=== PATIENT | male | born 1940 | race Caucasian/White ===

== ENCOUNTER 2019-06-16 09:15 | Inpatient (IN) ==
--- NOTE | 2019-06-04 10:53 | ANES ---
Anesthesia Pre Procedure Eval HOME MEDICATIONS Aspirin 325 mg PO DAILY 11/09/14 [Last Taken 11/09/14] latanoprost 0.005 % eye drops 1 drp OP QPM 01/09/18 [Last Taken Unknown] atorvastatin 20 mg tablet 20 mg PO DAILY #90 tab 11/21/18 [Last Taken Unknown] benazepril 20 mg-hydrochlorothiazide 25 mg tablet 1 tab PO DAILY #90 tab 12/19/18 [Last Taken Unknown] glimepiride 2 mg tablet 4 mg PO DAILY #60 tab 01/28/19 [Last Taken Unknown] blood sugar diagnostic See Rx Instructions .ROUTE .COMPLEX #100 each 03/07/19 [Last Taken Unknown] metFORMIN HCL [Metformin HCl] 1,000 mg PO BID 06/04/19 [Last Taken Unknown] metFORMIN HCL [Metformin HCl] 250 mg PO BID 06/04/19 [Last Taken Unknown] Allergies/Adverse Reactions: Allergies Allergy/AdvReac Type Severity Reaction Status Date / Time No Known Allergies Allergy Verified 06/04/19 09:30 - Planned Procedure Planned Procedure: RTKA, LTKA Medication List Reviewed:: Yes Allergies Verified: Yes Medical History (Last Reviewed 06/04/19 @ 10:51 by Fredo Simpson CRNA) Sleep apnea with use of continuous positive airway pressure (CPAP) Type II diabetes mellitus Amputation finger Onset Date: 11/16/99 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 Hyperlipidemia Onset Date: Unknown Hypertension Onset Date: Unknown Skin cancer Onset Date: 01/27/00 Surgical History (Last Reviewed 06/04/19 @ 10:51 by rFedo Simpson CRNA) H/O colonoscopy Onset Date: 01/25/07 Hx of eye surgery Onset Date: 1942 1 yrs of age Family History (Last Reviewed 06/04/19 @ 10:51 by Fredo Simpson CRNA) Brother Alzheimers disease Father Heart disease Sister Diabetes Obesity - Family Anesthesia History Family History:: no untoward family reactions to anesthesia, no familial bleeding tendencies, no family history of clotting disorders, no family history of premature - Airway/Neck/Teeth Within Normal Limits:: Yes Teeth Condition: intact Denture Type: Perm crown/bridge Mallampatti Score: 3 Thyromental (T-M) distance: > 6 cm Mandibulo Hyoid distance: > 3 cm - Respiratory Respiratory History: CPAP/BiPAP home use Smoking Status: Never smoker Discussed smoking cessation including day of surgery: No Sleep Apnea currently treated: Yes - Cardiovascular Tolerate Activity: Good Heart Sounds: S1 & S2, Regular - Anesthesia Assessment and Plan ASA Class: PS, II Anesthesia Type Plan: Block - Right ultrasound guided adductor canal nerve block for postop analgesia, Spinal
[~2019-06-16 09:15] MED LIST: MORPHINE SULFATE 15 MG TABLET.SA PO PRN; ROPIVACAINE HCL/PF 100 MG, EPINEPHrine 0.2 MG, KETOROLAC TROMETHAMINE 30 MG in NORMAL S... IJ PRN; TRANEXAMIC ACID 1,000 MG in NORMAL SALINE 100 ML IV PRN; ceFAZolin SODIUM 1 GM VIAL IV PRN
[2019-06-16] MEDS ORDERED: MIDAZOLAM HCL/PF 5 MG/ML VIAL ONE (12:27)
[2019-06-16] MEDS ORDERED: BUPIVACAINE HCL/EPINEPHRINE 50 ML VIAL ONE (12:28)
[2019-06-16] MEDS ORDERED: PROPOFOL VIAL IV ONE (12:28)
[2019-06-16] MEDS ORDERED: ceFAZolin SODIUM 1 GM VIAL ONE (12:34)
[2019-06-16] MEDS ORDERED: FLU VACC QS2019-20(6MOS UP)/PF 60 MCG/0.5 ML SYRINGE IM ONE (13:10)
[2019-06-16] MEDS: RINGER'S SOLUTION,LACTATED 1,000 ML IV PRN ×3 (13:22→20:04)
--- NOTE | 2019-06-16 15:10 | ANES ---
Anesthesia Procedure Note Procedure Note: ANESTHESIA PROCEDURE NOTE Date of Procedure: [06/16/2019 Time of procedure: 1335 PM. Performed by: ONEIL Slater CRNA, MSN Cna Hha: Mara Monreal RN. Preprocedure diagnosis: Post total knee arthroplasty pain. Post procedure diagnosis: Same. Procedure: Left adductor Canal Block. Indications: Post left total knee arthroplasty pain relief. Findings: See below. Details of the procedure: The patient was brought to OR #2 and placed in supine position. The patient's left femoral area to the knee was prepped with chlorhexidine and using ultrasound guidance the left femoral artery and nerve was identified and then followed to the level of the adductor canal. Lidocaine 1% was infiltrated to the skin of the intended injection site. Under ultrasound guidance the saphenous nerve was approached with visualization of a 4 inch shielded block needle. Once saphenous nerve was identified with proximity to the needle tip, the saphenous nerve was surrounded with 20 mL bupivacaine 0.5% with 1-200,000 epinephrine. Please see radiology/ultrasound report for details and retained images of the procedure. EBL: 0 Fluids: N/A. Specimen: N/A. Post procedure condition: The patient tolerated the procedure well. No complications were noted. Thank you for this consultation. Aron Ross CRNA, ARNP, MSN
[2019-06-16] MEDS ORDERED: NITROGLYCERIN 0.4 MG/TAB BTL SL PRN (15:43)
--- NOTE | 2019-06-16 15:43 | OR ---
Operative Report - Dictated Report Narrative: Date: 06/16/2019 Preoperative diagnosis: Left knee degenerative joint disease. Postoperative diagnosis: Left knee degenerative joint disease. Procedure: Left total knee arthroplasty. Surgeon: Manpreet Whitten M.D. Salesperson Art Objects: [place] PA-C (provided and essential set of skilled, educated hands that assisted with transfer, positioning, prepping, draping, manipulation, retraction, placement of jigs, injection, insertion of implants, irrigation, closure wounds, and dressings all of which could not be performed by the available surgical crew) Anesthesia: Spinal with regional block and local periarticular joint injection. Complications: None Specimens: Bone. Estimated blood loss: Minimal. Tourniquet time: 110 Minutes at 325 millimeters of mercury. Retained implants: Depuy Attune size 10 left lugged cemented posterior stabilized femoral component. Size 10 fixed-bearing cemented tibial platform. 10 by 10 millimeter posterior stabilized cross-linked tibial insert. 41 millimeter medialized patella button. Indications: Mr. Gerard is a 78-year-old gentleman who has had longstanding bilateral knee pain and arthrosis. He is here today for left total knee arthroplasty. This patient was followed in my clinic for period of time with significant complaints of left knee pain consistent with arthritic changes. He had failed conservative measures including, but not limited to, activity modification, passage of time, medications, and other conservative measures. Patient wished to proceed with surgical treatment. The risks, benefits, and alternatives were discussed in clinic. The risks of , blood clots, bleeding, infection, nerve/tendon blood vessel/ injury, malposition of components, intraoperative fracture, postoperative limited range of motion, persistent pain, failure of components, and need for additional procedures. Patient wished to proceed consent was obtained after answering all questions. Procedure: After marking the correct extremity on the floor, the patient was taken to the operating room. A timeout was performed. IV antibiotics consisting of Ancef were administered prior to the procedure. A regional followed by spinal anesthetic was induced by anesthesia, per my request, on the operative table with all bony prominences well-padded. Ramirez catheter was placed, and a bump was placed under the operative side buttock. SCDs and ADIA hose were utilized on the nonoperative leg. A well-padded tourniquet was applied to the operative thigh. The operative leg was then pre-scrubbed with alcohol, prepped, and draped in a standard sterile fashion. After exsanguinating the extremity with an Esmarch bandage, the tourniquet was inflated. After marking out the anterior knee for standard incision centered over the patella, the skin was incised and dissected down to the joint retinaculum. The joint retinaculum was marked out as well as the horizontal axis of the patella, and a standard medial parapatellar arthrotomy was then made. The most proximal aspect of the quadriceps tendon and the patella tendon insertion were protected from release. A partial synovectomy was performed as well as a resection of the infrapatellar fat pad. The distal femoral fat pad proximal to the trochlea was also resected using cautery. The soft tissues were elevated off the medial aspect of the proximal tibia using a Webster elevator ensuring that we did not transect the medial collateral ligament. Upon initial evaluation range of motion was approximately 0 degrees to 120 degrees of flexion. There were signs of advanced arthrosis in the medial and patellofemoral greater than lateral joint spaces. There were large marginal osteophytes which were removed with a rongeur. The knee was hyperflexed and the patella was tucked laterally. Protecting the surrounding soft tissues with Homans, an entry drill was placed down the femoral canal using Whitesides line for guidance into the entry point. The intramedullary femoral alignment avi was utilized in order to cut the distal femur in 5 degrees of valgus resecting 10 millimeters of bone. Next the distal femur was sized to a size 10. A posterior referencing guide was utilized to place the distal femoral cutting block in 3 degrees of external rotation. This was pinned into place. The rotation was confirmed both visually and based on anatomic landmarks. The 4 in 1 cutting jig of the appropriate size was utilized in order to make all bony cuts. The angle wing was used to ensure no notching. Retractors were utilized in order to protect surrounding soft tissues. This cut did not result in any excessive notching. We then cut the box centered over the distal femur. This allowed for resection of the anterior and posterior cruciate ligaments. I then turned my attention to the preparation of the tibia. Using an extra medullary tibial alignment avi, 4 millimeters of bone was resected off the medial articular surface. This was made perpendicular to the mechanical axis of the joint with the alignment avi centered over the ankle mortise. The alignment avi was checked and was noted to be parallel to the mechanical axis, centered over the medial one third of the tibial tubercle, paralleling the anterior surface of the tibia. We then turned our attention to the remaining meniscus and soft tissues. These were removed while protecting the surrounding ligaments and soft tissues. The marginal osteophytes off the anterior, posterior, medial, lateral aspects of the femur and tibia were removed. The tibia was sized out to a size 10. Next the tibia was drilled and punched in an externally rotated position. Next the trial femur and a series of tibial inserts were utilized in order to allow for full extension and maximal flexion. It was found that a 10 millimeter insert gave the best range of motion and stability at multiple flexion points as well as at full extension there was less than 2 mm of gapping both medially and laterally. There is minimal anterior translation with the knee at 90 degrees of flexion and no signs of being able to dislocate the knee. The patella was then prepared. The initial thickness was 26 millimeters. This was reamed down to 16 millimeters parallel to the anterior surface of the patella. It was sized out to a size 41 medialized patella button. This was then drilled and trialed. Without any medial restraint the patella tracked appropriately and did not sublux or dislocate. At this point, it was felt these were the appropriate sized implants, and all trials were removed. The standard periarticular joint injection consisting of ropivacaine, Toradol, and epinephrine were injected into the periarticular joint tissues. The bony surfaces were thoroughly irrigated with a pulsatile-suction saline irrigation device. A bone plug from the prior resected anterior chamfer cut was placed into the drill hole at the distal femur. The bony surfaces were then dried in preparation for placement of the implants. The cement was vacuum mixed per the director of emergency nursing's instructions. The cement was placed on the dry bony surfaces and posterior aspect of the implants. The implants were impacted into place, removing all extruded cement. At this point anesthesia administered tranexamic acid per protocol intravenously. The knee was placed in extension with axial loading with the trial insert while the cement cured. Once the cement cured, all remaining extruded cement was removed. The knee was placed through a range of motion with the trial insert to ensure appropriate range of motion and stability. Final range of motion was approximately 0 to 120 degrees. The knee was again thoroughly irrigated with pulsatile saline lavage. The final polyethylene insert was then impacted into place ensuring no retained soft tissues. The remaining periarticular joint injection was injected. A medium H emovac drain was placed exiting superior laterally. The knee was then placed over a triangle and the arthrotomy was closed with interrupted #1 Vicryl after thoroughly irrigating the joint. The deep and subcutaneous tissues were closed with interrupted 0 and 3-0 Vicryl respectively. Skin was closed with a running subcutaneous 3-0 Monocryl and Prineo Dermabond dressing. 4 x 4's, Sof-Rol, and a full leg Joesph wrap were applied. All sponge, needle, blade, and instrument counts were correct prior to closing the wounds. Postoperative condition: The patient was awoken and transferred to the posta nesthesia care unit in stable condition. Plan is to be admitted to the inpatient medical/surgical floor postoperatively for 24 hours of IV antibiotics, physical therapy, occupational therapy, and medical comanagement. Patient will be weightbearing as tolerated with range of motion as tolerated. DVT prophylaxis will be with SCDs, ADIA hose, and pharmacological anticoagulation. Anticipated hospital stay is approximately 1-3 days.
[2019-06-16] MEDS ORDERED: ACETAMINOPHEN 500 MG TABLET PO PRN (15:44)
[2019-06-16] MEDS ORDERED: MAG HYDROX/ALUMINUM HYD/SIMETH 30 ML UDC PO PRN (15:44)
[2019-06-16] MEDS ORDERED: diphenhydrAMINE HCL 50 MG/ML VIAL IV PRN (15:44)
[2019-06-16] MEDS ORDERED: ONDANSETRON HCL/PF 2 MG/ML VIAL IV PRN (15:44)
[2019-06-16] MEDS ORDERED: MAGNESIUM HYDROXIDE 30 ML UDC PO PRN (15:44)
[2019-06-16] MEDS ORDERED: ZOLPIDEM TARTRATE 5 MG TABLET PO PRN (15:44)
[2019-06-16] MEDS ORDERED: MORPHINE SULFATE 2 MG/ML DISP.SYRIN IV PRN (15:44)
--- NOTE | 2019-06-16 16:09 | ANES ---
Post Anesthesia Discharge - Transfer of Care Transfer of Care handoff given to nurse: Yes - Discharge from PACU Discharge from PACU when meets criteria: Yes
--- NOTE | 2019-06-16 16:10 | ANES ---
Post Anesthesia Assessment - Vital Signs Vitals: Last Vital Signs Temp 37 C 06/16/19 12:38 Pulse 72 06/16/19 12:38 Resp 18 06/16/19 12:38 BP 142/81 06/16/19 12:38 Pulse Ox 96 06/16/19 12:38 Airway Patency: Normal - Mental Status Level Of Consciousness: Awake - Pain Level Pain Score: 0 - N/V Assessment Nausea/Vomiting Presence: None Dehydration:: No
[2019-06-16] MEDS: metFORMIN HCL 500 MG TABLET PO SCH (17:30)
[2019-06-16] MEDS: ceFAZolin SODIUM 1 GM in DEXTROSE 5 % IN WATER 100 ML IV SCH ×2 (17:31)
[2019-06-16] MEDS: LATANOPROST 25 DROP BTL OP SCH (17:31)
[2019-06-16] MEDS: ROSUVASTATIN CALCIUM 10 MG TABLET PO SCH (20:15)
[2019-06-16] MEDS: MORPHINE SULFATE 15 MG TABLET.SA PO SCH (20:15)
[2019-06-16] MEDS: SENNOSIDES/DOCUSATE SODIUM 1 TAB TABLET PO SCH (20:15)
[2019-06-17] MEDS: ceFAZolin SODIUM 1 GM in DEXTROSE 5 % IN WATER 100 ML IV SCH ×4 (00:01→05:08)
[2019-06-17] MEDS: RINGER'S SOLUTION,LACTATED 1,000 ML IV PRN (04:13)
[2019-06-17] MEDS: oxyCODONE HCL/ACETAMINOPHEN 1 TAB TABLET PO PRN ×3 (05:17→20:06)
[2019-06-17 06:28] LABS: Hematocrit 32.8 % (42.0-52.0); Hemoglobin 10.5 gm/dL (13.5-18.0); Mean Corpuscular Hemoglobin 27.2 pg (27-31); Mean Platelet Volume 9.2 fl (8-11.3); Platelet Count 296 K/mm3 (150-450); Red Blood Count 3.86 M/mm3 (4.7-6.0); Red Cell Distribution Width 14.9 % (11.5-14.0); White Blood Count 10.7 K/mm3 (4.0-10.5)
[2019-06-17 06:52] LABS: Anion Gap 10.2 mmol/L (6.8-13.8); BUN/Creatinine Ratio 20.2 (9.0-21.6); Calcium * 7.8 mg/dL (7.9-10.9); Carbon Dioxide 26.7 mmol/L (24-32.6); Estimated Creat Clear 62.9; Potassium 3.9 mmol/L (3.4-4.6)
--- NOTE | 2019-06-17 08:04 | PN ---
Subjective - Date and Time Seen Date: 06/17/19 Time: 08:02 Subjective Narrative: Subjective: Reports no concerns. Was able to walk in the [place] with therapy. Pain is well-controlled. Voiding without any complications. Tolerating by mouth intake. Denies any nausea or vomiting. Denies calf pain. Slept well. Physical exam: Alert and oriented to person, place and time Left lower extremity: Palpable dorsalis pedis pulse. Sensation grossly intact to light touch. Dressings clean and dry. Able to flex and extend ankle and toes. No excessive drainage. Calf and thigh are soft and nontender. Assessment: Postop day 1 status post left total knee arthroplasty. Plan: Due to the need for pain control, post-operative limited mobility, protection of the surgical site and joint, monitoring of the wound, and the management of chronic medical conditions, he requires continued inpatient care. Continue with physical and occupational therapy weightbearing as tolerated. Continue with anticoagulation. 24 hours postoperative prophylactic antibiotics. Pain control with goal to rely on oral medications. Continue bowel regimen. Will need 6 weeks with walker or assitive device to protect joint while ambulating during the recovery process. Discontinue drain and continue Ramirez catheter due to planned surgical procedure tomorrow. N.p.o. after midnight Objective - Vitals Vitals: Last Vital Signs Temp 36.3 C 06/17/19 07:19 Pulse 79 06/17/19 07:19 Resp 20 06/17/19 07:19 BP 132/77 06/17/19 07:19 Pulse Ox 94 06/17/19 07:19 - Abnormal Lab Findings Abnormal Lab Findings: Abnormal Lab Results 06/17/19 06/17/19 Range/Units 06:00 06:00 WBC 10.7 H (4.0-10.5) K/mm3 RBC 3.86 L (4.7-6.0) M/mm3 Hgb 10.5 L (13.5-18.0) gm/dL Hct 32.8 L (42.0-52.0) % RDW 14.9 H (11.5-14.0) % Random Glucose 271 H (70-110) mg/dL Calcium 7.8 L (7.9-10.9) mg/dL Cauti Physician Documentation - Urinary Catheter Management Urethral (Ramirez) Urethral Indwelling: Yes Reason for Continuing Indwelling Catheter: Surgical Procedure Date of Insertion: 06/16/19 Time of Insertion: 13:55 Assessment/Plan - Problems/Diagnosis (1) Status post total left knee replacement Problem: Acute (2) Acute blood loss anemia Problem: Acute (3) Diabetes type 2, controlled Problem: Chronic Qualifiers: (4) Hyperlipidemia Problem: Chronic Qualifiers: (5) Hypertension Problem: Chronic Qualifiers: (6) Morbid obesity Problem: Chronic (7) VALERIA on CPAP Problem: Chronic
[2019-06-17] MEDS: METOPROLOL SUCCINATE 25 MG TABLET.SA PO SCH (09:42)
[2019-06-17] MEDS: metFORMIN HCL 500 MG TABLET PO SCH ×2 (09:42→16:21)
[2019-06-17] MEDS: GLIMEPIRIDE 4 MG TABLET PO SCH (09:42)
[2019-06-17] MEDS: ENALAPRIL MALEATE 20 MG TABLET PO SCH (09:42)
[2019-06-17] MEDS: HYDROCHLOROTHIAZIDE 25 MG TABLET PO SCH (09:43)
[2019-06-17] MEDS: MORPHINE SULFATE 15 MG TABLET.SA PO SCH ×2 (09:45→21:39)
[2019-06-17] MEDS: ENOXAPARIN SODIUM 40 MG/0.4 ML SYRG SC SCH (15:15)
[2019-06-17] MEDS: LATANOPROST 25 DROP BTL OP SCH (16:22)
[2019-06-17] MEDS: SENNOSIDES/DOCUSATE SODIUM 1 TAB TABLET PO SCH (21:40)
[2019-06-17] MEDS: ROSUVASTATIN CALCIUM 10 MG TABLET PO SCH (21:40)
[2019-06-18] MEDS: oxyCODONE HCL/ACETAMINOPHEN 1 TAB TABLET PO PRN ×2 (02:13→16:40)
[2019-06-18] MEDS ORDERED: ceFAZolin SODIUM 1 GM VIAL IV PRN (06:00)
[2019-06-18] MEDS ORDERED: ROPIVACAINE HCL/PF 100 MG, EPINEPHrine 0.2 MG, KETOROLAC TROMETHAMINE 30 MG in NORMAL S... IJ PRN (06:00)
[2019-06-18] MEDS ORDERED: TRANEXAMIC ACID 1,000 MG in NORMAL SALINE 100 ML IV PRN (06:00)
[2019-06-18] MEDS ORDERED: ISOPROPYL ALCOHOL 480 APPL BTL MC ONE (06:40)
[2019-06-18] MEDS ORDERED: ceFAZolin SODIUM 1 GM VIAL ONE (06:40)
[2019-06-18] MEDS: RINGER'S SOLUTION,LACTATED 1,000 ML IV PRN ×4 (07:30→22:06)
[2019-06-18] MEDS: METOPROLOL SUCCINATE 25 MG TABLET.SA PO SCH ×2 (07:58→10:32)
[2019-06-18] MEDS: MORPHINE SULFATE 15 MG TABLET.SA PO SCH ×3 (07:58→20:31)
[2019-06-18] MEDS ORDERED: MIDAZOLAM HCL/PF 5 MG/ML VIAL ONE (08:06)
[2019-06-18] MEDS ORDERED: PROPOFOL VIAL IV ONE (08:06)
--- NOTE | 2019-06-18 09:42 | ANES ---
Anesthesia Procedure Note Procedure Note: ANESTHESIA PROCEDURE NOTE Date of Procedure: 06/18/2019 Time of procedure: 8:20 AM. Performed by: ONEIL Slater CRNA, MSN Milk Handler: Sarah Arthur RN. Preprocedure diagnosis: Post right total knee arthroplasty pain. Post procedure diagnosis: Same. Procedure: Right adductor Canal Block. Indications: Post right total knee arthroplasty pain relief. Findings: See below. Details of the procedure: The patient was brought to OR #4 and placed in supine position. The patient's right femoral area to the knee was prepped with chlorhexidine and using ultrasound guidance the right femoral artery and nerve was identified and then followed to the level of the adductor canal. Lidocaine 1% was infiltrated to the skin of the intended injection site. Under ultrasound guidance the saphenous nerve was approached with visualization of a 4 inch shielded block needle. Once saphenous nerve was identified with proximity to the needle tip, the saphenous nerve was surrounded with 20 mL bupivacaine 0.5% with 1-200,000 epinephrine. Please see radiology/ultrasound report for details and retained images of the procedure. EBL: 0 Fluids: N/A. Specimen: N/A. Post procedure condition: The patient tolerated the procedure well. No complications were noted. Thank you for this consultation. Aron Ross CRNA, ARNP, MSN
--- NOTE | 2019-06-18 10:51 | OR ---
Operative Report - Dictated Report Narrative: Date: 06/18/2019 Preoperative diagnosis: Right knee degenerative joint disease. Postoperative diagnosis: Right knee degenerative joint disease. Procedure: Right total knee arthroplasty. Surgeon: Manpreet Whitten M.D. Carburetor Expert: Davis Camp PA-C (provided and essential set of skilled, educated hands that assisted with transfer, positioning, prepping, draping, manipulation, retraction, placement of jigs, injection, insertion of implants, irrigation, closure wounds, and dressings all of which could not be performed by the available surgical crew) Anesthesia: Spinal with regional block and local periarticular joint injection. Complications: None Specimens: Bone. Estimated blood loss: Minimal. Tourniquet time: 115 Minutes at 325 millimeters of mercury. Retained implants: Depuy Attune size 10 right lugged cemented posterior stabilized femoral component. Size 10 fixed-bearing cemented tibial platform. 10 by 6 millimeter posterior stabilized cross-linked tibial insert. 41 millimeter medialized patella button. Indications: Mr. Gerard is a 78-year-old gentleman who previously underwent left total knee arthroplasty 2 days ago is here today for a staged right total knee arthroplasty. This patient was followed in my clinic for period of time with significant complaints of right knee pain consistent with arthritic changes. He had failed conservative measures including, but not limited to, activity modification, passage of time, medications, and other conservative measures. Patient wished to proceed with surgical treatment. The risks, benefits, and alternatives were discussed in clinic. The risks of , blood clots, bleeding, infection, nerve/tendon blood vessel/ injury, malposition of components, intraoperative fracture, postoperative limited range of motion, persistent pain, failure of components, and need for additional procedures. Jose J barger wished to proceed consent was obtained after answering all questions. Procedure: After marking the correct extremity on the floor, the patient was taken to the operating room. A timeout was performed. IV antibiotics consisting of Ancef were administered prior to the procedure. A regional followed by spinal anesthetic was induced by anesthesia, per my request, on the operative table with all bony prominences well-padded. Ramirez catheter was already in place, and a bump was placed under the operative side buttock. SCDs and ADIA hose were utilized on the nonoperative leg. A well-padded tourniquet was applied to the operative thigh. The operative leg was then pre-scrubbed with alcohol, prepped, and draped in a standard sterile fashion. After exsanguinating the extremity with an Esmarch bandage, the tourniquet was inflated. After marking out the anterior knee for standard incision centered over the patella, the skin was incised and dissected down to the joint retinaculum. The joint retinaculum was marked out as well as the horizontal axis of the patella, and a standard medial parapatellar arthrotomy was then made. The most proximal aspect of the quadriceps tendon and the patella tendon insertion were protected from release. A partial synovectomy was performed as well as a resection of the infrapatellar fat pad. The distal femoral fat pad proximal to the trochlea was also resected using cautery. The soft tissues were elevated off the medial aspect of the proximal tibia using a Webster elevator ensuring that we did not transect the medial collateral ligament. Upon initial evaluation range of motion was approximately 0 degrees to 120 degrees of flexion. There were signs of advanced arthrosis in the lateral, medial, patellofemoral joint spaces. There were large marginal osteophytes which were removed with a rongeur. The knee was hyperflexed and the patella was tucked laterally. Protecting the surrounding soft tissues with Homans, an entry drill was placed down the femoral canal using Whitesides line for guidance into the entry point. The intramedullary femoral alignment avi was utilized in order to cut the distal femur in 5 degrees of valgus resecting 10 millimeters of bone. Next the distal femur was sized to a size 10. A posterior referencing guide was utilized to place the distal femoral cutting block in 3 degrees of external rotation. This was pinned into place. The rotation was confirmed both visually and based on anatomic landmarks. The 4 in 1 cutting jig of the appropriate size was utilized in order to make all bony cuts. The angle wing was used to ensure no notching. Retractors were utilized in order to protect surrounding soft tissues. This cut did not result in any excessive notching. We then cut the box centered over the distal femur. This allowed for resection of the anterior and posterior cruciate ligaments. I then turned my attention to the preparation of the tibia. Using an extra medullary tibial alignment avi, 4 millimeters of bone was resected off the medial articular surface. This was made perpendicular to the mechanical axis of the joint with the alignment avi centered over the ankle mortise. The alignment avi was checked and was noted to be parallel to the mechanical axis, centered over the medial one third of the tibial tubercle, paralleling the anterior surface of the tibia. We then turned our attention to the remaining meniscus and soft tissues. These were removed while protecting the surrounding ligaments and soft tissues. The marginal osteophytes off the anterior, posterior, medial, lateral aspects of the femur and tibia were removed. The tibia was sized out to a size 10. Next the tibia was drilled and punched in an externally rotated position. Next the trial femur and a series of tibial inserts were utilized in order to allow for full extension and maximal flexion. It was found that a 6 millimeter insert gave the best range of motion and stability at multiple flexion points as well as at full extension there was less than 2 mm of gapping both medially and laterally. There is minimal anterior translation with the knee at 90 degrees of flexion and no signs of bein g able to dislocate the knee. The patella was then prepared. The initial thickness was 26 millimeters. This was reamed down to 16 millimeters parallel to the anterior surface of the patella. It was sized out to a size 41 medialized patella button. This was then drilled and trialed. Without any medial restraint the patella tracked appropriately and did not sublux or dislocate. At this point, it was felt these were the appropriate sized implants, and all trials were removed. The standard periarticular joint injection consisting of ropivacaine, Toradol, and epinephrine were injected into the periarticular joint tissues. The bony surfaces were thoroughly irrigated with a pulsatile-suction saline irrigation device. A bone plug from the prior resected anterior chamfer cut was placed into the drill hole at the distal femur. The bony surfaces were then dried in preparation for placement of the implants. The cement was vacuum mixed per the aircraft systems technician's instructions. The cement was placed on the dry bony surfaces and posterior aspect of the implants. The implants were impacted into place, removing all extruded cement. At this point anesthesia administered tranexamic acid per protocol intravenously. The knee was placed in extension with axial loading with the trial insert while the cement cured. Once the cement cured, all remaining extruded cement was removed. The knee was placed through a range of motion with the trial insert to ensure appropriate range of motion and stability. Final range of motion was approximately 0 to 120 degrees. The knee was again thoroughly irrigated with pulsatile saline lavage. The final polyethylene insert was then impacted into place ensuring no retained soft tissues. The remaining periarticular joint injection was injected. A medium Hemovac drain was placed exiting superior laterally. The knee was then placed over a triangle and the arthrotomy was closed with interrupted #1 Vicryl after thoroughly irrigating the joint. The deep and subcutaneous tissues were closed with interrupted 0 and 3-0 Vicryl respectively. Skin was closed with a running subcutaneous 3-0 Monocryl and Prineo Dermabond dressing. 4 x 4's, Sof-Rol, and a full leg Joesph wrap were applied. All sponge, needle, blade, and instrument counts were correct prior to closing the wounds. Postoperative condition: The patient was awoken and transferred to the postanesthesia care unit in stable condition. Plan is to be admitted to the inpatient medical/surgical floor postoperatively for 24 hours of IV antibiotics, physical therapy, occupational therapy, and medical comanagement. Patient will be weightbearing as tolerated with range of motion as tolerated. DVT prophylaxis will be with SCDs, ADIA hose, and pharmacological anticoagulation. Anticipated hospital stay is approximately 1-3 days.
[2019-06-18] MEDS ORDERED: RINGER'S SOLUTION,LACTATED 1,000 ML IV PRN (10:54)
--- NOTE | 2019-06-18 11:12 | ANES ---
Post Anesthesia Discharge - Transfer of Care Transfer of Care handoff given to nurse: Yes - Discharge from PACU Discharge from PACU when meets criteria: Yes - Discharge to ASU Discharge to ASU-no complications/pt stable: Yes
--- NOTE | 2019-06-18 11:13 | ANES ---
Post Anesthesia Assessment - Vital Signs Vitals: Last Vital Signs Temp 36 C 06/18/19 11:00 Pulse 81 06/18/19 11:10 Resp 18 06/18/19 11:10 BP 130/61 06/18/19 11:10 Pulse Ox 96 06/18/19 11:10 Airway Patency: Normal - Mental Status Level Of Consciousness: Awake - Pain Level Pain Score: 0 - N/V Assessment Nausea/Vomiting Presence: None Dehydration:: No
[2019-06-18] MEDS: GLIMEPIRIDE 4 MG TABLET PO SCH (11:44)
[2019-06-18] MEDS: metFORMIN HCL 500 MG TABLET PO SCH ×2 (11:44→16:41)
[2019-06-18] MEDS: ENALAPRIL MALEATE 20 MG TABLET PO SCH (11:45)
[2019-06-18] MEDS: HYDROCHLOROTHIAZIDE 25 MG TABLET PO SCH (11:45)
[2019-06-18] MEDS: ceFAZolin SODIUM 1 GM in DEXTROSE 5 % IN WATER 100 ML IV SCH ×4 (13:02→18:56)
[2019-06-18] MEDS: ENOXAPARIN SODIUM 40 MG/0.4 ML SYRG SC SCH (15:13)
[2019-06-18] MEDS: LATANOPROST 25 DROP BTL OP SCH (16:42)
[2019-06-18] MEDS: ROSUVASTATIN CALCIUM 10 MG TABLET PO SCH (20:31)
[2019-06-18] MEDS: SENNOSIDES/DOCUSATE SODIUM 1 TAB TABLET PO SCH (20:31)
[2019-06-19] MEDS: ceFAZolin SODIUM 1 GM in DEXTROSE 5 % IN WATER 100 ML IV SCH ×2 (01:00)
[2019-06-19] MEDS: oxyCODONE HCL/ACETAMINOPHEN 1 TAB TABLET PO PRN ×2 (05:53→11:59)
[2019-06-19 06:54] LABS: Hematocrit 29.6 % (42.0-52.0); Hemoglobin 9.6 gm/dL (13.5-18.0); Mean Cell Volume 83.4 fl (78-100); Mean Corpuscular Hgb Conc 32.4 g/dl (32-36); Mean Platelet Volume 9.1 fl (8-11.3); Platelet Count 272 K/mm3 (150-450); Red Blood Count 3.55 M/mm3 (4.7-6.0); Red Cell Distribution Width 14.9 % (11.5-14.0); White Blood Count 12.8 K/mm3 (4.0-10.5)
[2019-06-19 07:09] LABS: Anion Gap 13.5 mmol/L (6.8-13.8); Estimated Creat Clear 64.7; Potassium 3.5 mmol/L (3.4-4.6)
--- NOTE | 2019-06-19 08:19 | PN ---
Subjective - Date and Time Seen Date: 06/19/19 Time: 08:15 Subjective Narrative: Patient seen. He reports at this time his pain is controlled. Nursing reports that they did have difficulty needed assistance x2 to get him up to the chair. Patient reports no nausea vomiting chest pain or shortness of breath. He reports no other complaints. Nursing reports that he had a good night with no significant complaints. Objective Objective Narrative: Patient is currently up in chair. He responds to questions appropriately. He does not appear to be any distress. Right leg with Joesph wrap from foot to thigh dressings clean dry and intact. Drain intact. Left leg with ADIA hose. Patient is able to plantarflex and dorsiflex both ankles. His calves are supple. - Vitals Vitals: Last Vital Signs Temp 37.4 C 06/19/19 06:40 Pulse 91 06/19/19 06:40 Resp 20 06/19/19 06:40 BP 128/60 06/19/19 06:40 Pulse Ox 98 06/19/19 06:40 - Abnormal Lab Findings Abnormal Lab Findings: Abnormal Lab Results 06/19/19 06/19/19 Range/Units 06:50 06:50 WBC 12.8 H (4.0-10.5) K/mm3 RBC 3.55 L (4.7-6.0) M/mm3 Hgb 9.6 L (13.5-18.0) gm/dL Hct 29.6 L (42.0-52.0) % RDW 14.9 H (11.5-14.0) % Sodium 130 L (132-142) mmol/L Chloride 94 L (97-106) mmol/L Random Glucose 255 H (70-110) mg/dL - Exam Constitutional: Present: Alert, Oriented x3, Cooperative, No distress Cauti Physician Documentation - Urinary Catheter Management Urethral (Ramirez) Urethral Indwelling: Yes Date of Insertion: 06/16/19 Time of Insertion: 13:55 Assessment/Plan - Problems/Diagnosis (1) Status post right knee replacement Problem: Acute (2) Diabetes mellitus Problem: Chronic Qualifiers: Diabetes mellitus type: type 2 Diabetes mellitus intermediate manager insulin use: without residential use Diabetes mellitus complication status: without complication Qualified Code(s): E11.9 - Type 2 diabetes mellitus without complications (3) Hyperlipidemia Problem: Chronic Qualifiers: (4) Hypertension Problem: Chronic Qualifiers: (5) VALERIA on CPAP Problem: Chronic (6) Morbid obesity Problem: Chronic (7) Diabetes type 2, controlled Problem: Chronic Qualifiers: (8) Status post total left knee replacement Problem: Acute Narrative: PT, anticoagulation, pain control. Patient will work with therapy and hopefully get out in the [place] today for walking. He reports he does not have any stairs at home. He will have his drain pulled later and a dressing change later. (9) Acute blood loss anemia Problem: Acute Narrative: 9.6 grams down from 10.5 g yesterday. Patient did have some mild tachycardia yesterday running in the low 100s. At this time he is running below 100. He is not symptomatic with lightheadedness or dizziness with getting up. This time we will continue observation.
[2019-06-19] MEDS ORDERED: FLU VACC QS2019-20(6MOS UP)/PF 60 MCG/0.5 ML SYRINGE IM ONE (09:00)
[2019-06-19] MEDS: GLIMEPIRIDE 4 MG TABLET PO SCH (10:52)
[2019-06-19] MEDS: METOPROLOL SUCCINATE 25 MG TABLET.SA PO SCH (10:52)
[2019-06-19] MEDS: HYDROCHLOROTHIAZIDE 25 MG TABLET PO SCH (10:54)
[2019-06-19] MEDS: MORPHINE SULFATE 15 MG TABLET.SA PO SCH ×2 (10:54→20:16)
[2019-06-19] MEDS: ENALAPRIL MALEATE 20 MG TABLET PO SCH (10:54)
[2019-06-19] MEDS: metFORMIN HCL 500 MG TABLET PO SCH ×2 (10:55→17:25)
[2019-06-19] MEDS: ENOXAPARIN SODIUM 40 MG/0.4 ML SYRG SC SCH (14:34)
[2019-06-19] MEDS: LATANOPROST 25 DROP BTL OP SCH (17:25)
[2019-06-19] MEDS: ROSUVASTATIN CALCIUM 10 MG TABLET PO SCH (20:16)
[2019-06-19] MEDS: SENNOSIDES/DOCUSATE SODIUM 1 TAB TABLET PO SCH (20:16)
[2019-06-20] MEDS: GLIMEPIRIDE 4 MG TABLET PO SCH (08:49)
[2019-06-20] MEDS: METOPROLOL SUCCINATE 25 MG TABLET.SA PO SCH (08:49)
[2019-06-20] MEDS: HYDROCHLOROTHIAZIDE 25 MG TABLET PO SCH (08:50)
[2019-06-20] MEDS: oxyCODONE HCL/ACETAMINOPHEN 1 TAB TABLET PO PRN ×3 (08:50→21:47)
[2019-06-20] MEDS: metFORMIN HCL 500 MG TABLET PO SCH ×2 (08:50→17:38)
[2019-06-20] MEDS: ENALAPRIL MALEATE 20 MG TABLET PO SCH (08:50)
[2019-06-20] MEDS: MORPHINE SULFATE 15 MG TABLET.SA PO SCH ×2 (08:52→20:46)
[2019-06-20] MEDS: INSULIN LISPRO 100 UNITS/ML VIAL SC SCH ×2 (12:16→17:40)
--- NOTE | 2019-06-20 12:29 | PN ---
Subjective - Date and Time Seen Date: 06/20/19 Time: 12:26 Subjective Narrative: Nursing reports that David is still having "difficulty getting out of bed. And is requiring min assist of 2. His sugars have been elevated and a sliding scale insulin has been started. At this time he reports his pain is adequately controlled. He reports his goal is still to get home in the near future as his is with him at home. He has no other complaints. Objective Objective Narrative: Bandages clean dry intact. Patient is currently up in a chair with his ice compression on. He is alert and oriented and responds to questions appropriately. He is in no distress. - Vitals Vitals: Last Vital Signs Temp 36.8 C 06/20/19 10:00 Pulse 93 06/20/19 10:00 Resp 20 06/20/19 10:00 BP 143/71 06/20/19 10:00 Pulse Ox 95 06/20/19 10:00 - Exam Constitutional: Present: Alert, Oriented x3, Cooperative, No distress Cauti Physician Documentation - Urinary Catheter Management Urethral (Ramirez) Urethral Indwelling: Yes Date of Insertion: 06/16/19 Time of Insertion: 13:55 Date of Removal: 06/19/19 Time of Removal: 05:50 Assessment/Plan - Problems/Diagnosis (1) Status post right knee replacement Problem: Acute (2) Diabetes mellitus Problem: Chronic Qualifiers: Diabetes mellitus type: type 2 Diabetes mellitus local intermodal truck driver insulin use: without longterm use Diabetes mellitus complication status: without complication Qualified Code(s): E11.9 - Type 2 diabetes mellitus without complications (3) Hyperlipidemia Problem: Chronic Qualifiers: (4) Hypertension Problem: Chronic Qualifiers: (5) VALERIA on CPAP Problem: Chronic (6) Morbid obesity Problem: Chronic (7) Diabetes type 2, controlled Problem: Chronic Qualifiers: Narrative: With regards to his elevated blood sugars we have consult previously Dr. Arguello for medical comanagement. (8) Status post total left knee replacement Problem: Acute Narrative: David is slow to progress with therapy at this time. We discussed with him that we will have social contact worker look into a skilled facility to get him more prepared for going home. He will continue working with physical therapy over the weekend. Anticoagulation. (9) Acute blood loss anemia Problem: Acute
[2019-06-20] MEDS: ENOXAPARIN SODIUM 40 MG/0.4 ML SYRG SC SCH (13:51)
[2019-06-20] MEDS: LATANOPROST 25 DROP BTL OP SCH (17:38)
--- NOTE | 2019-06-20 20:06 | CONS ---
[facility] - General Date of Service: 06/20/19 Source: patient - History of Present Illness Initial Comments: David bansal is an 78-year-old white male with past medical history of hypertension, hyperlipidemia, diabetes mellitus type 2, obstructive sleep apnea on CPAP who was admitted for bilateral total knee replacements. I was informed by case sealer that I am being consulted for medical management of elevated blood sugar. His blood sugar has been ranging from 150-383 and and this morning it was 255. They have started him on Accu-Chek with Humalog coverage following low-dose protocol. The patient is asymptomatic. He denies any chest pain, shortness of breath, coughing, burning sensation when he urinates, headaches or neck stiffness, fever or chills. Allergies/Adverse Reactions: Allergies No Known Allergies Allergy (Verified 06/16/19 12:53) Home Medications: Home Medications Medication Instructions Recorded Last Taken Aspirin 325 mg PO DAILY 11/09/14 11/09/14 latanoprost 0.005 % eye drops 1 drp OP QPM 01/09/18 Unknown atorvastatin 20 mg tablet 20 mg PO DAILY #90 tab 11/21/18 Unknown benazepril 20 1 tab PO DAILY #90 tab 12/19/18 Unknown mg-hydrochlorothiazide 25 mg tablet glimepiride 2 mg tablet 4 mg PO DAILY #60 tab 01/28/19 Unknown blood sugar diagnostic See Rx Instructions .ROUTE 03/07/19 Unknown .COMPLEX #100 ea metFORMIN HCL [Metformin HCl] 1,000 mg PO BID 06/04/19 Unknown metFORMIN HCL [Metformin HCl] 250 mg PO BID 06/04/19 Unknown metoprolol succinate 25 mg 25 mg PO DAILY #30 tab 06/11/19 Unknown tablet,extended release 24 hr nitroglycerin 0.4 mg sublingual 0.4 mg SL Q5M PRN #30 tab 06/11/19 Unknown tablet Procedures Application of splint (05/21/99) Biopsy of skin and subcutaneous tissue (01/25/07) Closure of skin and subcutaneous tissue of other sites (07/30/06) Endoscopic polypectomy of large intestine (01/25/07) Medications - Medications Current Medications: Current Medications Enalapril Maleate (Vasotec) 20 mg PO DAILY JOSEMANUEL Stop: 07/17/19 09:01 Last Admin: 06/20/19 08:50 Dose: 20 mg Documented by: Enoxaparin Sodium (Lovenox) 40 mg SC Q24H [facility] Stop: 07/17/19 14:45 Last Admin: 06/20/19 13:51 Dose: 40 mg Documented by: Hydrochlorothiazide (Hydrodiuril) 25 mg PO DAILY [facility] Stop: 07/17/19 09:01 Last Admin: 06/20/19 08:50 Dose: 25 mg Documented by: Lactated Ringer's (Lactated Ringers) 1,000 mls @ 125 mls/hr IV .Q8H PRN PRN Reason: HYDRATION Stop: 07/16/19 15:45 Last Infusion: 06/19/19 06:00 Dose: Infused Documented by: Insulin Human Lispro (Humalog) 0 units SC ACINS [facility]; Protocol Stop: 07/20/19 12:01 Last Admin: 06/20/19 17:40 Dose: 3 units Documented by: Latanoprost (Xalatan) 1 drop OP QPM [facility] Stop: 07/16/19 17:01 Last Admin: 06/20/19 17:38 Dose: 1 drop Documented by: Metformin HCl (Glucophage) 1,000 mg PO BIDWM [facility] Stop: 07/16/19 17:01 Last Admin: 06/20/19 17:38 Dose: 1,000 mg Documented by: Metformin HCl (Glucophage) 250 mg PO BIDWM [facility] Stop: 07/16/19 17:01 Last Admin: 06/20/19 17:38 Dose: 250 mg Documented by: Metoprolol Succinate (Toprol Xl) 25 mg PO DAILY [facility] Stop: 07/17/19 09:01 Last Admin: 06/20/19 08:49 Dose: 25 mg Documented by: Morphine Sulfate (Ms Contin) 15 mg PO Q12H [facility] Stop: 07/16/19 21:01 Last Admin: 06/20/19 08:52 Dose: 15 mg Documented by: Oxycodone/Acetaminophen (Percocet 5 Mg/325 Mg) 2 tab PO Q4H PRN PRN Reason: Moderate Pain (pain scale 4-6) Stop: 07/16/19 15:45 Last Admin: 06/20/19 17:37 Dose: 2 tab Documented by: Rosuvastatin Calcium (Crestor) 10 mg PO HS [facility] Stop: 07/16/19 21:01 Last Admin: 06/19/19 20:16 Dose: 10 mg Documented by: Senna/Docusate Sodium (Senokot-S) 2 tab PO HS JOSEMANUEL Stop: 07/16/19 21:01 Last Admin: 06/19/19 20:16 Dose: 2 tab Documented by: Review of Systems - Review of Systems Generalized/Overall Review: Absent: Chills, Fever EENTM: Absent: Blurred Vision Respiratory: Absent: Cough, Shortness of Breath, Orthopnea, Wheezing Cardiac: Absent: Chest Pain, Edema, Palpitations Abdominal: Absent: Nausea, Vomiting, Abdominal Pain, Diarrhea Genitourinary: Absent: Burning, Urgency, Frequency Musculoskeletal: Present: Joint Pain Neurological: Absent: Headache Skin: Absent: Lesions, Rash Misc: All systems neg except as marked Physical Examination - Exam Vital Signs: Vital Signs - Last Taken Temp 36.6 C 06/20/19 18:17 Pulse 87 06/20/19 18:17 Resp 18 06/20/19 18:17 BP 127/58 06/20/19 18:17 Pulse Ox 98 06/20/19 18:17 O2 Oxygen Delivery Method Room Air Constitutional: Present: Alert, Oriented x3, Cooperative, Morbidly obese ENT Exam: Present: hearing grossly normal Eye Exam: bilateral eye: normal inspection, PERRL, EOMI Neck: Present: supple. Absent: lymphadenopathy (R), lymphadenopathy (L) Respiratory: Present: decreased breath sounds, No rales, No wheezing Cardiovascular/Chest: Present: regular rate, rhythm, no JVD, no murmur Abdomen: Present: Normal bowel sounds, soft, nontender, nondistended Extremity: Present: no calf tenderness, pedal edema - Assessments/Findings (1) Elevated blood sugar level Diagnosis(s): David's elevated blood sugars likely related to the stress of his knee surgeries. Although his white blood cell count is elevated it is likely inflammatory/reactive to the stress of surgery rather than an infection. He has no fever. He denies any chest pain and therefore unlikely cardiac related. We will continue with short acting pre-meal insulin coverage following her low-dose protocol for now. We will discontinue his glimepiride and will start him on 10 units of Lantus tonight for basal insulin coverage. We will adjust his insulin dosages as we go along. He will continue with his Metformin. Problem: Acute (2) Status post right knee replacement Problem: Acute (3) Status post total left knee replacement Problem: Acute (4) Diabetes mellitus Problem: Chronic Qualifiers: Diabetes mellitus type: type 2 Diabetes mellitus extermination supervisor insulin use: without extermination supervisor use Diabetes mellitus complication status: without complication Qualified Code(s): E11.9 - Type 2 diabetes mellitus without complications (5) Hyperlipidemia Problem: Chronic Qualifiers: (6) Hypertension Problem: Chronic Qualifiers: (7) Morbid obesity Problem: Chronic (8) VALERIA on CPAP Problem: Chronic
[2019-06-20] MEDS: ROSUVASTATIN CALCIUM 10 MG TABLET PO SCH (20:41)
[2019-06-20] MEDS: SENNOSIDES/DOCUSATE SODIUM 1 TAB TABLET PO SCH (20:42)
[2019-06-20] MEDS ORDERED: INSULIN GLARGINE,HUM.REC.ANLOG 100 UNITS/ML VIAL SC SCH (21:00)
[2019-06-21] MEDS: INSULIN LISPRO 100 UNITS/ML VIAL SC SCH ×3 (07:09→16:52)
--- NOTE | 2019-06-21 08:02 | PN ---
Subjective - Date and Time Seen Date: 06/21/19 Time: 07:59 Subjective Narrative: Patient reports he feels he is doing well as far as pain control. He states when he is sitting he has no pain. When he gets up and ambulates around a 2. He states his he feels he is limited by his strength at this point time. He has no other complaints at this time. Objective Objective Narrative: Patient is currently up in chair eating breakfast. He is alert and oriented and cooperative to exam. Examination of both incisions reveal well approximated with intact pernio dressing. There is no drainage or active bleeding. His calves are supple. He is able to plantarflex and dorsiflex both ankles. Sensation intact light touch. - Vitals Vitals: Last Vital Signs Temp 36.6 C 06/21/19 07:26 Pulse 86 06/21/19 07:26 Resp 18 06/21/19 07:26 BP 141/69 06/21/19 07:26 Pulse Ox 95 06/21/19 07:26 - Exam Constitutional: Present: Alert, Oriented x3, Cooperative, No distress Cauti Physician Documentation - Urinary Catheter Management Urethral (Ramirez) Urethral Indwelling: Yes Date of Insertion: 06/16/19 Time of Insertion: 13:55 Date of Removal: 06/19/19 Time of Removal: 05:50 Assessment/Plan - Problems/Diagnosis (1) Status post right knee replacement Problem: Acute (2) Diabetes mellitus Problem: Chronic Qualifiers: Diabetes mellitus type: type 2 Diabetes mellitus senior living insulin use: without senior living use Diabetes mellitus complication status: without complication Qualified Code(s): E11.9 - Type 2 diabetes mellitus without complications (3) Hyperlipidemia Problem: Chronic Qualifiers: (4) Hypertension Problem: Chronic Qualifiers: (5) VALERIA on CPAP Problem: Chronic (6) Morbid obesity Problem: Chronic (7) Diabetes type 2, controlled Problem: Chronic Qualifiers: Narrative: Patient's blood sugars are running high still. We have consulted Dr. Arguello for medical management. (8) Status post total left knee replacement Problem: Acute Narrative: Patient slow to progress at this time. Physical therapy over the weekend. Pain control. Anticoagulation. Again discussed with him if he is not strong enough to go home may have to go to a skilled care facility for period of time. (9) Acute blood loss anemia Problem: Acute Narrative: Asymptomatic
--- NOTE | 2019-06-21 09:07 | PN ---
Subjective - Date and Time Seen Date: 06/21/19 Time: 09:02 Subjective Narrative: patient is working [email or web address] PT. His BS is 279 this morning. Objective - Review of Systems Generalized/Overall Review: Denies: Chills, Fever EENTM: Denies: Blurred Vision Respiratory: Denies: Cough, Shortness of Breath, Orthopnea Cardiac: Denies: Chest Pain, Edema, Palpitations Abdominal: Denies: Nausea, Vomiting, Abdominal Pain Genitourinary Symptoms: Denies: Itching, Frequency Musculoskeletal Complaints: Reports: Joint Pain Neurological: Denies: Headache Skin: Denies: Lesions, Rash Misc: All systems neg except as marked - Vitals Vitals: Last Vital Signs Temp 36.6 C 06/21/19 07:26 Pulse 86 06/21/19 07:26 Resp 18 06/21/19 07:26 BP 141/69 06/21/19 07:26 Pulse Ox 95 06/21/19 07:26 - Exam Constitutional: Present: Alert, Oriented x3, Cooperative, Morbidly obese ENT Exam: Present: hearing grossly normal Neck: Present: supple. Absent: lymphadenopathy (R), lymphadenopathy (L) Respiratory: Present: decreased breath sounds, No rales, No wheezing Cardiovascular/Chest: Present: regular rate, rhythm, no JVD, no murmur Abdomen: Present: Normal bowel sounds, soft, nontender, nondistended Extremity: Present: no calf tenderness, pedal edema Cauti Physician Documentation - Urinary Catheter Management Urethral (Ramirez) Urethral Indwelling: Yes Date of Insertion: 06/16/19 Time of Insertion: 13:55 Date of Removal: 06/19/19 Time of Removal: 05:50 Assessment/Plan Plan Narrative: David's blood sugar this morning was 279. We discontinued his glimepiride and started him on Lantus last night at 10 units as he is insulin tucker. He was started earlier with short acting insulin following low-dose protocol. He had h is bilateral total knees done on Sunday and Sunday. Postop day 3 on his second knee. His hyperglycemia is still likely due to the stress of surgeries he had. We will increase his Lantus to 15 units and increase his Humalog coverage to moderate dose. Will need to watch out for hypoglycemia. - Problems/Diagnosis (1) Elevated blood sugar level Problem: Acute (2) Status post right knee replacement Problem: Acute (3) Status post total left knee replacement Problem: Acute (4) Diabetes mellitus Problem: Chronic Qualifiers: Diabetes mellitus type: type 2 Diabetes mellitus terminal carman insulin use: without senior living use Diabetes mellitus complication status: without complication Qualified Code(s): E11.9 - Type 2 diabetes mellitus without complications (5) Hyperlipidemia Problem: Chronic Qualifiers: (6) Hypertension Problem: Chronic Qualifiers: (7) Morbid obesity Problem: Chronic (8) VALERIA on CPAP Problem: Chronic
[2019-06-21] MEDS: HYDROCHLOROTHIAZIDE 25 MG TABLET PO SCH (10:03)
[2019-06-21] MEDS: metFORMIN HCL 500 MG TABLET PO SCH ×2 (10:03→16:50)
[2019-06-21] MEDS: ENALAPRIL MALEATE 20 MG TABLET PO SCH (10:04)
[2019-06-21] MEDS: MORPHINE SULFATE 15 MG TABLET.SA PO SCH ×2 (10:04→21:18)
[2019-06-21] MEDS: METOPROLOL SUCCINATE 25 MG TABLET.SA PO SCH (10:04)
[2019-06-21] MEDS: ENOXAPARIN SODIUM 40 MG/0.4 ML SYRG SC SCH (14:11)
[2019-06-21] MEDS: oxyCODONE HCL/ACETAMINOPHEN 1 TAB TABLET PO PRN (14:11)
[2019-06-21] MEDS: LATANOPROST 25 DROP BTL OP SCH (16:53)
[2019-06-21] MEDS ORDERED: INSULIN GLARGINE,HUM.REC.ANLOG 100 UNITS/ML VIAL SC SCH (21:00)
[2019-06-21] MEDS: ROSUVASTATIN CALCIUM 10 MG TABLET PO SCH (21:19)
[2019-06-21] MEDS: SENNOSIDES/DOCUSATE SODIUM 1 TAB TABLET PO SCH (21:19)
[2019-06-22] MEDS: INSULIN LISPRO 100 UNITS/ML VIAL SC SCH ×3 (07:46→17:27)
[2019-06-22] MEDS: oxyCODONE HCL/ACETAMINOPHEN 1 TAB TABLET PO PRN ×2 (07:52→14:43)
[2019-06-22] MEDS: MORPHINE SULFATE 15 MG TABLET.SA PO SCH ×2 (08:08→20:36)
[2019-06-22] MEDS: metFORMIN HCL 500 MG TABLET PO SCH ×2 (08:08→17:47)
[2019-06-22] MEDS: HYDROCHLOROTHIAZIDE 25 MG TABLET PO SCH (08:08)
[2019-06-22] MEDS: METOPROLOL SUCCINATE 25 MG TABLET.SA PO SCH (08:08)
[2019-06-22] MEDS: ENALAPRIL MALEATE 20 MG TABLET PO SCH (08:09)
--- NOTE | 2019-06-22 11:18 | PN ---
Subjective - Date and Time Seen Date: 06/22/19 Time: 11:15 Subjective Narrative: patient AAo x3. afebrile. FBS 246. Objective - Review of Systems Generalized/Overall Review: Denies: Chills, Fever EENTM: Denies: Blurred Vision Respiratory: Denies: Cough, Shortness of Breath, Orthopnea Cardiac: Reports: Edema. Denies: Chest Pain, Palpitations Abdominal: Denies: Nausea, Vomiting, Abdominal Pain Genitourinary Symptoms: Denies: Urgency, Frequency Musculoskeletal Complaints: Reports: Joint Pain Neurological: Denies: Headache Skin: Denies: Lesions, Rash Misc: All systems neg except as marked - Vitals Vitals: Last Vital Signs Temp 36.4 C 06/22/19 06:49 Pulse 93 06/22/19 08:09 Resp 18 06/22/19 06:49 BP 129/72 06/22/19 08:09 Pulse Ox 96 06/22/19 06:49 - Exam Constitutional: Present: Alert, Oriented x3, Cooperative ENT Exam: Present: hearing grossly normal Neck: Present: supple. Absent: lymphadenopathy (R), lymphadenopathy (L) Cardiovascular/Chest: Present: regular rate, rhythm, no JVD, no murmur Abdomen: Present: Normal bowel sounds, soft, nontender, obese Extremity: Present: no calf tenderness, pedal edema Cauti Physician Documentation - Urinary Catheter Management Urethral (Ramirez) Urethral Indwelling: Yes Date of Insertion: 06/16/19 Time of Insertion: 13:55 Date of Removal: 06/19/19 Time of Removal: 05:50 Assessment/Plan Plan Narrative: David was referred to me for elevated blood sugar. I have increased his Humalog to moderate dose and and started him on the Lantus at 10 and then increase yesterday to 15 units. His fasting blood sugar this morning was 246. We will increase his Lantus to 20 units. Continue with PT/OT and DVT prophylaxis. 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
--- NOTE | 2019-06-22 11:53 | PN ---
Subjective - Date and Time Seen Date: 06/22/19 Time: 11:50 Subjective Narrative: Patient reports he feels he is doing okay. Reports no pain at rest. Still reports difficulty getting out of bed and with ambulation needing assistance. No other complaints at this time. Objective Objective Narrative: Patient is currently up in chair was napping. He is alert and oriented and cooperative to exam. Examination of both incisions reveal well approximated with intact pernio dressing. There is no drainage or active bleeding. His calves are supple. He is able to plantarflex and dorsiflex both ankles. Sensation intact light touch. - Vitals Vitals: Last Vital Signs Temp 36.4 C 06/22/19 06:49 Pulse 93 06/22/19 08:09 Resp 18 06/22/19 06:49 BP 129/72 06/22/19 08:09 Pulse Ox 96 06/22/19 06:49 Cauti Physician Documentation - Urinary Catheter Management Urethral (Ramirez) Urethral Indwelling: Yes Date of Insertion: 06/16/19 Time of Insertion: 13:55 Date of Removal: 06/19/19 Time of Removal: 05:50 Assessment/Plan - Problems/Diagnosis (1) Status post right knee replacement Problem: Acute (2) Diabetes mellitus Problem: Chronic Qualifiers: Diabetes mellitus type: type 2 Diabetes mellitus termite exterminator insulin use: without termite exterminator use Diabetes mellitus complication status: without complication Qualified Code(s): E11.9 - Type 2 diabetes mellitus without complications (3) Hyperlipidemia Problem: Chronic Qualifiers: (4) Hypertension Problem: Chronic Qualifiers: (5) VALERIA on CPAP Problem: Chronic (6) Morbid obesity Problem: Chronic (7) Diabetes type 2, controlled Problem: Chronic Qualifiers: (8) Status post total left knee replacement Problem: Acute Narrative: PT, anticoagulation, pain control, in need of skilled care- will know tomorrow about placement possibility (9) Acute blood loss anemia Problem: Acute
[2019-06-22] MEDS: ENOXAPARIN SODIUM 40 MG/0.4 ML SYRG SC SCH (15:11)
[2019-06-22] MEDS: LATANOPROST 25 DROP BTL OP SCH (17:25)
[2019-06-22] MEDS: SENNOSIDES/DOCUSATE SODIUM 1 TAB TABLET PO SCH (20:36)
[2019-06-22] MEDS: ROSUVASTATIN CALCIUM 10 MG TABLET PO SCH (20:36)
[2019-06-22] MEDS ORDERED: INSULIN GLARGINE,HUM.REC.ANLOG 100 UNITS/ML VIAL SC SCH (21:00)
[2019-06-23] MEDS: oxyCODONE HCL/ACETAMINOPHEN 1 TAB TABLET PO PRN ×2 (04:51→10:01)
[2019-06-23] MEDS: INSULIN LISPRO 100 UNITS/ML VIAL SC SCH ×2 (07:20→12:07)
--- NOTE | 2019-06-23 09:51 | PN ---
Subjective - Date and Time Seen Date: 06/23/19 Time: 09:47 Subjective Narrative: patient's accucheck this morning was 217. asymptomatic. Objective - Review of Systems Generalized/Overall Review: Reports: Weakness. Denies: Chills, Fever EENTM: Denies: Blurred Vision Respiratory: Denies: Cough, Shortness of Breath, Orthopnea Cardiac: Denies: Chest Pain, Edema, Palpitations Abdominal: Denies: Nausea, Vomiting, Abdominal Pain Genitourinary Symptoms: Denies: Urgency, Frequency Musculoskeletal Complaints: Reports: Joint Pain Neurological: Denies: Headache Skin: Denies: Lesions, Rash Misc: All systems neg except as marked - Vitals Vitals: Last Vital Signs Temp 37.1 C 06/23/19 06:56 Pulse 94 06/23/19 06:56 Resp 12 06/23/19 06:56 BP 143/74 06/23/19 06:56 Pulse Ox 92 L 06/23/19 06:56 - Exam Constitutional: Present: Alert, Oriented x3, Cooperative, Morbidly obese ENT Exam: Present: hard of hearing Respiratory: Present: decreased breath sounds, No rales, No wheezing Cardiovascular/Chest: Present: regular rate, rhythm, no JVD, no murmur Abdomen: Present: Normal bowel sounds, soft, nontender, nondistended Extremity: Present: no calf tenderness, pedal edema Cauti Physician Documentation - Urinary Catheter Management Urethral (Ramirez) Urethral Indwelling: Yes Date of Insertion: 06/16/19 Time of Insertion: 13:55 Date of Removal: 06/19/19 Time of Removal: 05:50 Assessment/Plan Plan Narrative: David Gerard is s/p B/L TKR and was referred to me for elevated BS. We we will increase his Lantus to 25 untis SQ QHS and will increase his Humalog to high dose protocol. OK to discharge to [facility] from IM side. Will follow up patient when he follows up with Orthopedics. - Problems/Diagnosis (1) Elevated blood sugar level Problem: Acute (2) Status post right knee replacement Problem: Acute (3) Status post total left knee replacement Problem: Acute (4) Diabetes mellitus Problem: Chronic Qualifiers: Diabetes mellitus type: type 2 Diabetes mellitus exterminator helper termite insulin use: without exterminator helper termite use Diabetes mellitus complication status: without complication Qualified Code(s): E11.9 - Type 2 diabetes mellitus without complications (5) Hyperlipidemia Problem: Chronic Qualifiers: Hyperlipidemia type: pure hypercholesterolemia Qualified Code(s): E78.00 - Pure hypercholesterolemia, unspecified (6) Hypertension Problem: Chronic Qualifiers: Hypertension type: essential hypertension Qualified Code(s): I10 - Essential (primary) hypertension (7) Morbid obesity Problem: Chronic (8) VALERIA on CPAP Problem: Chronic
[2019-06-23] MEDS: MORPHINE SULFATE 15 MG TABLET.SA PO SCH (10:01)
[2019-06-23] MEDS: METOPROLOL SUCCINATE 25 MG TABLET.SA PO SCH (10:02)
[2019-06-23] MEDS: metFORMIN HCL 500 MG TABLET PO SCH (10:02)
[2019-06-23] MEDS: ENALAPRIL MALEATE 20 MG TABLET PO SCH (10:02)
[2019-06-23] MEDS: HYDROCHLOROTHIAZIDE 25 MG TABLET PO SCH (10:02)
--- NOTE | 2019-06-23 11:32 | DS ---
(1) Status post total left knee replacement Problem: Acute (2) Acute blood loss anemia Problem: Acute (3) Diabetes type 2, controlled Problem: Chronic Qualifiers: (4) Hyperlipidemia Problem: Chronic Qualifiers: Hyperlipidemia type: pure hypercholesterolemia Qualified Code(s): E78.00 - Pure hypercholesterolemia, unspecified (5) Hypertension Problem: Chronic Qualifiers: Hypertension type: essential hypertension Qualified Code(s): I10 - Essential (primary) hypertension (6) Morbid obesity Problem: Chronic (7) VALERIA on CPAP Problem: Chronic Date of Discharge:: 06/23/19 Hospital Course: Mr. Gerard was admitted to the floor after undergoing staged bilateral total knee arthroplasties. Tolerated this well. Was admitted to the floor postoperatively for 24 hours of IV antibiotics, pain control, medical comanagement, and occupational and physical therapy. OT and PT were consulted to assist with activities of daily living and ambulation. Was made weightbearing as tolerated with range of motion as tolerated. Pain was initially controlled with IV regimen. This was transitioned to oral once tolerating a by mouth intake. Was resumed on home diet and medications. Had a Ramirez catheter inserted and the operating room which was discontinued on postoperative day 1 after second knee. A drain was placed intraoperatively into the knees which were discontinued on postoperative days 1. Lovenox SCD and ADIA hose were utilized for DVT prophylaxis. Vital signs remained stable to the hospital course. Labs were obtained which showed a final hemoglobin of 9.6 grams. Pre-op hemoglobin was 11.9. This will me followed clinically and treated conservatively. BMP was reviewed and was stable. Physical examination throughout the hospital course showed an extremity that had sensation that was intact to light touch, palpable pulses, a benign wound, motor intact to the toes, ankle, and knee. Knee range of motion was approximately 5 degrees to 60 degrees bilaterally. He was slow to progress with PT and due to his limited mobility and limited home assistance it was felt he would benefit from continue skilled therapy. Instructions: Continue with weightbearing as tolerated and range of motion as tolerated. It is okay to shower and get the wound wet as long as there is no drainage from the wound. Do not bathe or soak the wound. If there is any drainage from the wound keep the wound clean and dry and cover with dry gauze and tape. Change every 2- 3 days as needed if there is any drainage. Cover wound while showering if there is any drainage. Continue with physical and occupational therapy. Resume home diet. Report any fever over 101.5 Fahrenheit, uncontrolled pain, increased drainage, foul odor of drainage, new or increased calf pain or shortness of breath, or any other significant complaints. A 325mg dialy aspirin will be started after finishing lovenox if not allergic. Continue with ADIA hose. No driving until instructed otherwise. Follow up in approximately 2-3 weeks. Procedures Performed: see notes below List Procedures: Bilateral total knee arthroplasty Results and Findings: Lab Pending Results 06/17/19 06:00: WBC 10.7 H, RBC 3.86 L, Hgb 10.5 L, Hct 32.8 L, MCV 85.0, MCH 27.2, MCHC 32.0, RDW 14.9 H, Plt Count 296, MPV 9.2 06/17/19 06:00: Sodium 133, Plasma Sodium 136, Potassium 3.9, Chloride 100, Carbon Dioxide 26.7, Anion Gap 10.2, BUN 22, Creatinine 1.09, Est GFR (Non-Af Amer) 69, BUN/Creatinine Ratio 20.2, Random Glucose 271 H, Calcium 7.8 L 06/19/19 06:50: WBC 12.8 H, RBC 3.55 L, Hgb 9.6 L, Hct 29.6 L, MCV 83.4, MCH 27.0, MCHC 32.4, RDW 14.9 H, Plt Count 272, MPV 9.1 06/19/19 06:50: Sodium 130 L, Plasma Sodium 132, Potassium 3.5, Chloride 94 L, Carbon Dioxide 26.0, Anion Gap 13.5, BUN 17, Creatinine 1.06, Est GFR (Non-Af Amer) 71, BUN/Creatinine Ratio 16.0, Random Glucose 255 H, Calcium 8.0 Discharge Location: Other Disposition: SNF Condition: Good Discharge Activity: Activity as tolerated, Weight bearing Discharge Diet: Consistent carbs [facility] Therapy: Physical Therapy, Occupation Therapy Referrals: Manpreet Whitten MD [Staff Physician] - 07/08/19 9:30 am Problem Oriented Discharge Instructions to Patient/Family: Total Knee Replacement, Care After, [id number] Additional Patient Instructions (free text): To [facility], please call and fax discharge information to them. PT and OT to evaluate and treat. Follow up in the office with Dr. Whitten on Sunday07/08/19 at 9:30am. Complete Home Medications List: Complete Home Medication List: Aspirin 325 mg PO DAILY 11/09/14 latanoprost 0.005 % eye drops 1 drp OP QPM 01/09/18 atorvastatin 20 mg tablet 20 mg PO DAILY #90 tab 11/21/18 benazepril 20 mg-hydrochlorothiazide 25 mg tablet 1 tab PO DAILY #90 tab 12/19/18 glimepiride 2 mg tablet 4 mg PO DAILY #60 tab 01/28/19 blood sugar diagnostic See Rx Instructions .ROUTE .COMPLEX #100 ea 03/07/19 metFORMIN HCL [Metformin HCl] 1,000 mg PO BID 06/04/19 metFORMIN HCL [Metformin HCl] 250 mg PO BID 06/04/19 metoprolol succinate 25 mg tablet,extended release 24 hr 25 mg PO DAILY #30 tab 06/11/19 nitroglycerin 0.4 mg sublingual tablet 0.4 mg SL Q5M PRN #30 tab 06/11/19
[2019-06-23 13:22] VITALS: BP 128/68
[2019-06-23] MEDS ORDERED: INSULIN GLARGINE,HUM.REC.ANLOG 100 UNITS/ML VIAL SC SCH (21:00)
== END 2019-06-23 13:20 | DRG 462 ==
LOC: MS 12:36 → EDSTATUS 12:45
PROVIDERS: ADMIT Orthopaedic Surgery; ATTEND Orthopaedic Surgery
DX: G47.33 Obstructive sleep apnea (adult) (pediatric); Z68.41 Body mass index [BMI] 40.0-44.9, adult; E78.5 Hyperlipidemia, unspecified; E66.01 Morbid (severe) obesity due to excess calories; E11.9 Type 2 diabetes mellitus without complications; D62 Acute posthemorrhagic anemia; M17.0 Bilateral primary osteoarthritis of knee; I10 Essential (primary) hypertension
CPT/HCPCS: 36415; 73560; 80048; 85027; 94660; 97110; 97116; 97161; 97164; 97165; 97530; 97535